=== PATIENT | female | born 1980 | race American Indian/Alaskan Native ===

== ENCOUNTER 2018-11-28 22:18 | Observation (INO) | payer MEDICAID ==
--- NOTE | 2018-11-28 23:43 | XRay Report ---
CHEST 1 VIEW INDICATION / CLINICAL INFORMATION: Chest Pain. COMPARISON: None available. FINDINGS: SUPPORT DEVICES: None. HEART / MEDIASTINUM: No significant abnormality. LUNGS / PLEURA: No significant pulmonary or pleural abnormality. No pneumothorax. ADDITIONAL FINDINGS: A LAP-BAND is noted. IMPRESSION: 1. No acute findings. Signer Name: Stalin Kumar MD Signed: 11/28/2018 11:38 PM Workstation Name: [id number]
[2018-11-28 23:51] LABS: Basophils # (Auto) 0.1 K/mm3 (0.0-0.1); Basophils % (Auto) 0.7 % (0.0-1.8); Eosinophils # (Auto) 0.1 K/mm3 (0.0-0.4); Eosinophils % (Auto) 1.5 % (0.0-4.3); Hematocrit 38.2 % (30.3-42.9); Hemoglobin 13.2 gm/dl (10.1-14.3); Lymphocytes # (Auto) 3.5 K/mm3 (1.2-5.4); Lymphocytes % (Auto) 47.3 % (13.4-35.0); Mean Corpuscular HGB Conc 35 % (30-34); Mean Corpuscular Volume 90 fl (79-97); Monocytes # (Auto) 0.8 K/mm3 (0.0-0.8); Monocytes % (Auto) 10.3 % (0.0-7.3); Platelet Count 338 K/mm3 (140-440); Red Blood Count 4.23 M/mm3 (3.65-5.03); Red Cell Distribution Width 13.5 % (13.2-15.2)
[2018-11-29 00:06] LABS: BUN/Creatinine Ratio 19; Blood Urea Nitrogen 17 mg/dL (7-17); Calcium 9.9 mg/dL (8.4-10.2); Hemolysis Index 11
[2018-11-29] MEDS ORDERED: ZOFRAN IV ONE (02:25)
[2018-11-29] MEDS ORDERED: ASPIRIN PO ONE (02:25)
[2018-11-29] MEDS ORDERED: SUBLIMAZE IV ONE (02:25)
[2018-11-29] MEDS ORDERED: NITRO-BID 2% TP ONE (02:25)
--- NOTE | 2018-11-29 02:30 | Emergency Department Report ---
HPI - General Chief Complaint: Chest Pain Time Seen by Provider: 11/29/18 02:15 - HPI HPI: Room 3 The patient is 38-year-old female presenting with chief complaint of chest pain. The patient states for the past 3 days she has had a waxing and waning moreno bsternal chest pain described as a pressure. Patient states this seems as though her pain worsens after meals. The patient states she has taken Tums but it does not resolve the pain. Patient admits to shortness of breath associated with her chest pain but denies diaphoresis or nausea/vomiting. Patient currently gives her chest pain score of 8/10. The patient states she's never had a stress test or cardiac catheterization Location: [See above] Duration: [See above] Quality: [See above] Severity: [See above] Modifying factors: [see above] Context: [see above] Mode of transportation: [not driving] ED Past Medical Hx - Past Medical History Previous Medical History?: No - Surgical History Past Surgical History?: Yes Additional Surgical History: Cyst removal right hand 10/26/18. Nerve damage Repair right hand 10/26/18. Carpal Tunnel Release 09/09/17. Nerve Damage Repair right hand 09/27/17 - Family History Family history: no significant - Social History Smoking Status: Never Smoker Substance Use Type: None (denies illicit drug use), Alcohol (occasional) ED Review of Systems ROS: Stated complaint: CHEST/BACK PAIN Other details as noted in HPI Constitutional: denies: diaphoresis Eyes: denies: eye pain ENT: denies: throat pain Respiratory: shortness of breath Cardiovascular: chest pain Endocrine: no symptoms reported Gastrointestinal: denies: nausea, vomiting Genitourinary: denies: dysuria Musculoskeletal: denies: back pain Neurological: denies: headache Physical Exam - Physical Exam Vital Signs: Vital Signs 11/28/18 11/29/18 22:22 01:55 Temperature 98.8 F 98.7 F Pulse Rate 73 70 Respiratory 18 17 Rate Blood Pressure 115/78 Blood Pressure 119/71 [Left] O2 Sat by Pulse 98 97 Oximetry Physical Exam: GENERAL: The patient is well-developed well-nourished female lying on stretcher not appearing to be in acute distress. [] HEENT: Normocephalic. Atraumatic. Extraocular motions are intact. Patient has moist mucous membranes. NECK: Supple. Trachea midline CHEST/LUNGS: Clear to auscultation. There is no respiratory distress noted. HEART/CARDIOVASCULAR: Regular. There is no tachycardia. There is no gallop rub or murmur. ABDOMEN: Abdomen is soft, nontender. Patient has normal bowel sounds. There is no abdominal distention. SKIN: There is no rash. There is no edema. There is no diaphoresis. NEURO: The patient is awake, alert, and oriented. The patient is cooperative. The patient has normal speech MUSCULOSKELETAL: There is no evidence of acute injury. ED Course Vital Signs 11/28/18 11/29/18 22:22 01:55 Temperature 98.8 F 98.7 F Pulse Rate 73 70 Respiratory 18 17 Rate Blood Pressure 115/78 Blood Pressure 119/71 [Left] O2 Sat by Pulse 98 97 Oximetry ED Medical Decision Making - Lab Data Result diagrams: 11/28/18 23:03 11/28/18 23:03 Laboratory Tests 11/28/18 11/28/18 23:03 23:03 WBC 7.3 RBC 4.23 Hgb 13.2 Hct 38.2 MCV 90 MCH 31 MCHC 35 H RDW 13.5 Plt Count 338 Lymph % (Auto) 47.3 H Dickens % (Auto) 10.3 H Eos % (Auto) 1.5 Baso % (Auto) 0.7 Lymph # 3.5 Dickens # 0.8 Eos # 0.1 Baso # 0.1 Seg Neutrophils % 40.2 Seg Neutrophils # 2.9 Sodium 141 Potassium 3.8 Chloride 102.2 Carbon Dioxide 29 Anion Gap 14 BUN 17 Creatinine 0.9 Estimated GFR > 60 BUN/Creatinine Ratio 19 Glucose 101 H Calcium 9.9 Troponin T < 0.010 - EKG Data -: EKG Interpreted by Me EKG shows normal: sinus rhythm Rate: normal - EKG Data When compared to previous EKG there are: previous EKG unavailable Interpretation: normal EKG - Radiology Data Radiology results: report reviewed (chest x-ray), image reviewed (chest x-ray) interpreted by me: Chest x-ray-no focal infiltrates, no pneumothorax [facility], [place] [address] [place] [address] XRay Report Signed Patient: REECE BOND MR#: [id number] : 1980 Acct:[id number] Age/Sex: 38 / F ADM Date: 11/28/18 Loc: ED Attending Dr: Ordering Physician: JOSE NIXON MD Date of Service: 11/28/18 Procedure(s): XR chest 1V ap Accession Number(s): [id number] cc: ED MD HUSSAIN Fluoro Time In Minutes: CHEST 1 VIEW INDICATION / CLINICAL INFORMATION: Chest Pain. COMPARISON: None available. FINDINGS: SUPPORT DEVICES: None. HEART / MEDIASTINUM: No significant abnormality. LUNGS / PLEURA: No significant pulmonary or pleural abnormality. No pneumothorax. ADDITIONAL FINDINGS: A LAP- BAND is noted. IMPRESSION: 1. No acute findings. Signer Name: Stalin Kumar MD Signed: 11/28/2018 11:38 PM Workstation Name: [id number] Transcribed By: BRUNILDA Dictated By: Stalin Kumar MD Electronically Authenticated By: Stalin Kumar MD Signed Date/Time: 11/28/182337 DD/ 37 TD/TT: - Differential Diagnosis ACS, pericarditis, GERD, Critical care attestation.: If time is entered above; I have spent that time in minutes in the direct care of this critically ill patient, excluding procedure time. ED Disposition Clinical Impression: Chest pain Disposition: DC-09 OP ADMIT IP TO THIS HOSP Is pt being admited?: Yes Does the pt Need Aspirin: Yes Condition: Fair Instructions: Chest Pain (ED) Time of Disposition: 02:30 (hospitalist paged (Dr. Tatiana Velazco))
[2018-11-29] MEDS ORDERED: PERCOCET 5/325 PO PRN (03:53)
[2018-11-29] MEDS ORDERED: SODIUM CHLORIDE FLUSH SYRINGE 10 ML IV PRN (03:53)
[2018-11-29] MEDS ORDERED: TYLENOL PO PRN (03:53)
[2018-11-29] MEDS ORDERED: ZOFRAN IV PRN (03:53)
--- NOTE | 2018-11-29 03:56 | History and Physical Report ---
History of Present Illness Date of examination: 11/29/18 History of present illness: 38-year-old woman with no medical history comes emergency room with complaints of chest pain, described as pressure, constant, intensity, 5/10, no radiation, some relief with tums, cannot identify exacerbating factors. Denies nausea and vomiting, palpitation, +shortness of breath Review of systems Constitutional: no weight loss, chills, fever Ears, eyes, nose, mouth and throat: no nasal congestion, no nasal discharge, no sinus pressure, no vision change, no red eye. Neck: No neck pain or rigidity. Cardiovascular: no palpitations Respiratory: no cough Gastrointestinal: no hematochezia, abdominal pain Genitourinary : no frequency , no hematuria Musculoskeletal: no joint swelling or muscle ache Integumentary: no rash, no pruritis Neurological: no parathesias, no focal weakness Endocrine: no cold or heat intolerance, no polyuria or polydipsia Hematologic/Lymphatic: no easy bruising, no easy bleeding, no gland swelling Allergic/Immunologic: no urticaria, no angioedema. PAST MEDICAL HISTORY:None PAST SURGICAL HISTORY: Cyst removal right hand, Nerve damage Repair right hand, Carpal Tunnel Release SOCIAL HISTORY: Denies alcohol, drugs, tobacco FAMILY HISTORY: Hypertension Medications and Allergies Allergies Allergy/AdvReac Type Severity Reaction Status Date / Time No Known Allergies Allergy Unverified 11/28/18 22:57 Home Medications Medication Instructions Recorded Confirmed Last Taken Type HYDROcodone/APAP 5-325 [[place] 1 each PO QDAY PRN 11/29/18 11/29/18 Unknown History 5-325 mg TAB] Pantoprazole [Protonix TAB] 40 mg PO QDAY #30 tablet 11/30/18 Unknown Rx Active Meds: Active Medications Acetaminophen (Tylenol) 650 mg PO Q4H PRN PRN Reason: Pain MILD(1-3)/Fever >100.5/GONZALES Enoxaparin Sodium (Lovenox) 30 mg SUB-Q QDAY MARIANO Ondansetron HCl (Zofran) 4 mg IV Q8H PRN PRN Reason: Nausea And Vomiting Oxycodone/Acetaminophen (Percocet 5/325) 1 tab PO Q6H PRN PRN Reason: Pain, Moderate (4-6) Sodium Chloride (Sodium Chloride Flush Syringe 10 Ml) 10 ml IV BID MARIANO Sodium Chloride (Sodium Chloride Flush Syringe 10 Ml) 10 ml IV PRN PRN PRN Reason: LINE FLUSH Exam - Physical Exam Narrative exam: General Apperance: The patient lying in bed, breathing comfortable HEENT: Normocephalic, atraumatic. Pupils equally round and reactive to light, EOMI, no sclericterus or JVD or thyromegaly or nodule. , no carotid bruit, mucous membranes moist, no exudate or erythema Heart: S1-S2, regular is rhythm Lungs: Clear to auscultation bilaterally, breathing comfortable Abdomen: Positive bowel sounds, soft, nontender, nondistended, no organomegaly Extremities: No edema cyanosis clubbing Skin: no rash, nodule, warm and dry Neuro: cranial nerves 2-12 intact, speech is fluent, motor/sensory intact - Constitutional Vitals: Temp Pulse Resp BP Pulse Ox 98.7 F 70 16 138/80 97 11/29/18 01:55 11/29/18 02:51 11/29/18 03:50 11/29/18 02:51 11/29/18 01:55 Results - Labs CBC & Chem 7: 11/28/18 23:03 11/28/18 23:03 Labs: Abnormal lab results 11/28/18 11/28/18 Range/Units 23:03 23:03 MCHC 35 H (30-34) % Lymph % (Auto) 47.3 H (13.4-35.0) % Castro % (Auto) 10.3 H (0.0-7.3) % Glucose 101 H (65-100) mg/dL - Imaging and Cardiology EKG: image reviewed Chest x-ray: image reviewed Assessment and Plan Assessment Chest Pain, atypical Plan Admit to medicine Check cardiac enzymes, stress test DVT prophalaxis
[2018-11-29] MEDS: LOVENOX SUB-Q SCH (10:08)
--- NOTE | 2018-11-29 13:10 | Event Note ---
Date: 11/29/18 Patient seen and examined, no new chest pain. Resting comfortable. Start diet and await stress test in AM.
[2018-11-29] MEDS: SODIUM CHLORIDE FLUSH SYRINGE 10 ML IV SCH ×2 (19:05→21:07)
[2018-11-30] MEDS ORDERED: LEXISCAN IV ONE ×2 (11:34→13:11)
--- NOTE | 2018-11-30 13:10 | Treadmill Report ---
LEXISCAN STRESS TEST REPORT REASON FOR STUDY: Chest pain. STRESS TEST PROTOCOL: The patient received 0.4 of Lexiscan intravenously over 10 seconds. Technetium-99m tetrofosmin was subsequently injected. Baseline ECG: sinus bradycardia. Lexiscan ECG: no ischemic changes. No chest pain. No arrhythmias. IMPRESSION: Electrocardiographically negative stress test. Nuclear imaging report to follow. JOB# [id number] YASMINE/LISBET HARDEN
--- NOTE | 2018-11-30 14:08 | Discharge Summary ---
Providers - Providers Date of Admission: 11/29/18 03:36 Attending physician: KARISSA HASTINGS MD Primary care physician: OBED Hospitalization Condition: Stable Disposition: DC-01 TO HOME OR SELFCARE Exam - Constitutional Vitals: Temp Pulse Resp BP Pulse Ox 98.8 F 59 L 18 167/103 99 11/30/18 12:32 11/30/18 05:18 11/30/18 12:32 11/30/18 12:32 11/30/18 10:00 Plan Activity: advance as tolerated, fall precautions Diet: low fat Follow up with: LILIAN CLAY MD [Primary Care Provider] - 7 Days MIN,ORTIZ CHAKRABORTY MD [Staff Physician] - 7 Days Prescriptions: Pantoprazole [Protonix TAB] 40 mg PO QDAY #30 tablet
[2018-11-30] MEDS: SODIUM CHLORIDE FLUSH SYRINGE 10 ML IV SCH ×2 (15:17→21:10)
[2018-11-30] MEDS: LOVENOX SUB-Q SCH (15:17)
--- NOTE | 2018-11-30 16:21 | Consultation ---
History of Present Illness Consult date: 11/30/18 Requesting physician: KARISSA HASTINGS Consult reason: chest pain, other (abnormal stress test) History of present illness: The patient presented with a one-week history of intermittent substernal chest pressure with no radiation. There is no associated nausea, vomiting, diaphoresis or dyspnea. Earlier this morning, she underwent a Lexiscan stress test with nuclear imaging. The test revealed a medium size, partially r eversible apical defect, as well as a medium-size reversible anterior defect. Past History Past Medical History: No medical history Past Surgical History: Other (hand surgery) Social history: denies: smoking, alcohol abuse Family history: denies: CAD Medications and Allergies Allergies Allergy/AdvReac Type Severity Reaction Status Date / Time No Known Allergies Allergy Unverified 11/28/18 22:57 Home Medications Medication Instructions Recorded Confirmed Last Taken Type HYDROcodone/APAP 5-325 [[place] 1 each PO QDAY PRN 11/29/18 11/29/18 Unknown History 5-325 mg TAB] Pantoprazole [Protonix TAB] 40 mg PO QDAY #30 tablet 11/30/18 Unknown Rx Active Meds: Active Medications Acetaminophen (Tylenol) 650 mg PO Q4H PRN PRN Reason: Pain MILD(1-3)/Fever >100.5/GONZALES Enoxaparin Sodium (Lovenox) 40 mg SUB-Q QDAY [facility] Last Admin: 11/30/18 15:17 Dose: 40 mg Documented by: Ondansetron HCl (Zofran) 4 mg IV Q8H PRN PRN Reason: Nausea And Vomiting Oxycodone/Acetaminophen (Percocet 5/325) 1 tab PO Q6H PRN PRN Reason: Pain, Moderate (4-6) Last Admin: 11/30/18 15:45 Dose: 1 tab Documented by: Sodium Chloride (Sodium Chloride Flush Syringe 10 Ml) 10 ml IV BID [facility] Last Admin: 11/30/18 15:17 Dose: 10 ml Documented by: Sodium Chloride (Sodium Chloride Flush Syringe 10 Ml) 10 ml IV PRN PRN PRN Reason: LINE FLUSH Review of Systems Constitutional: no fever, no chills Ears, nose, mouth and throat: no ear pain, no ear discharge, no sore throat Cardiovascular: chest pain, no orthopnea, no palpitations, no lightheadedness, no shortness of breath Respiratory: no cough, no hemoptysis, no shortness of breath Gastrointestinal: no abdominal pain, no nausea, no vomiting, no diarrhea, no constipation Genitourinary Female: no dysuria, no urinary frequency Rectal: no pain, no bleeding Musculoskeletal: no neck stiffness, no neck pain, no myalgias Integumentary: no rash, no pruritis Neurological: no weakness, no parathesias, no headaches Endocrine: no cold intolerance, no heat intolerance Hematologic/Lymphatic: no easy bruising, no easy bleeding Allergic/Immunologic: no urticaria, no wheezing Physical Examination Vital Signs Last Vital Signs Temp 98.8 F 11/30/18 12:32 Pulse 59 L 11/30/18 05:18 Resp 18 11/30/18 12:32 BP 167/103 11/30/18 12:32 Pulse Ox 99 11/30/18 10:00 General appearance: no acute distress HEENT: Positive: Normocephaly, Mucus Membranes Moist Neck: Positive: neck supple, trachea midline Cardiac: Positive: Reg Rate and Rhythm, S1/S2 Lungs: Positive: clear to auscultation Neuro: Positive: Grossly Intact Abdomen: Positive: Soft, Active Bowel Sounds. Negative: Tender Skin: Positive: Clear. Negative: Rash Musculoskeletal: Normal Range of Motion Extremities: Present: normal. Absent: edema Results 11/28/18 23:03 11/28/18 23:03 - Imaging and Cardiology EKG: image reviewed EKG interpretations - Telemetry EKG Rhythm: Sinus Rhythm - EKG Sinus rhythms and dysrhythmias: sinus rhythm Assessment and Plan Scheduled for coronary angiography in a.m. The test has been discussed with the patient in detail and she has agreed to proceed. - Patient Problems (1) Chest pain Current Visit: Yes Status: Acute (2) Abnormal nuclear stress test Current Visit: Yes Status: Acute (3) Obesity Current Visit: Yes Status: Chronic Qualifiers: Obesity type: due to excess calories
[2018-11-30] MEDS ORDERED: NACL 0.9% 500 ML 500 ML IV SCH (17:00)
[2018-11-30] MEDS ORDERED: COLACE PO SCH (17:36)
--- NOTE | 2018-11-30 18:33 | Progress Note ---
Assessment and Plan Assessment and plan: 38-year-old white woman with no medical history comes emergency room with complaints of chest pain, described as pressure, constant, intensity, 5/10, no radiation, some relief with tums, cannot identify exacerbating factors. Denies nausea and vomiting, palpitation, +shortness of breath Chest Pain, atypical Morbid Obesity Plan Continue supportive care Stress Test positive for cardiac cath in am Cardiology consulted Counselling on weightloss recommended. DVT prophalaxis History Interval history: Patient seen and examined, no complaints. Hospitalist Physical - Physical exam Narrative exam: VITAL SIGNS: Reviewed. GENERAL: The patient appeared normally developed, obese, Vital signs as documented. HEAD: No signs of head trauma. EYES: Pupils are equal. Extraocular motions intact. EARS: Hearing grossly intact. MOUTH: Oropharynx is normal. NECK: No adenopathy, no JVD. CHEST: Chest with clear breath sounds bilaterally. No wheezes, rales, or rhonchi. CARDIAC: Regular rate and rhythm. S1 and S2, without murmurs, gallops, or rubs. VASCULAR: No Edema. Peripheral pulses normal and equal in all extremities. ABDOMEN: Soft, non tender and non distended. No rebound or guarding, and no masses palpated. Bowel Sounds normal. MUSCULOSKELETAL: Good range of motion of all major joints. Extremities without clubbing, cyanosis or edema. NEUROLOGIC EXAM: Alert and oriented x 3 No focal sensory or strength deficits. Speech normal. Follows commands. PSYCHIATRIC: Mood normal. SKIN: detial exam as documented in skin assessment - Constitutional Vitals: Temp Pulse Resp BP Pulse Ox 98.8 F 59 L 18 167/103 99 11/30/18 12:32 11/30/18 05:18 11/30/18 12:32 11/30/18 12:32 11/30/18 10:00 General appearance: Present: no acute distress Results - Labs CBC & Chem 7: 11/28/18 23:03 11/28/18 23:03 Labs: Laboratory Last Values WBC 7.3 K/mm3 (4.5-11.0) 11/28/18 23:03 RBC 4.23 M/mm3 (3.65-5.03) 11/28/18 23:03 Hgb 13.2 gm/dl (10.1-14.3) 11/28/18 23:03 Hct 38.2 % (30.3-42.9) 11/28/18 23:03 MCV 90 fl (79-97) 11/28/18 23:03 MCH 31 pg (28-32) 11/28/18 23:03 MCHC 35 % (30-34) H 11/28/18 23:03 RDW 13.5 % (13.2-15.2) 11/28/18 23:03 Plt Count 338 K/mm3 (140-440) 11/28/18 23:03 Lymph % (Auto) 47.3 % (13.4-35.0) H 11/28/18 23:03 [place] % (Auto) 10.3 % (0.0-7.3) H 11/28/18 23:03 Eos % (Auto) 1.5 % (0.0-4.3) 11/28/18 23:03 Baso % (Auto) 0.7 % (0.0-1.8) 11/28/18 23:03 Lymph # 3.5 K/mm3 (1.2-5.4) 11/28/18 23:03 [place] # 0.8 K/mm3 (0.0-0.8) 11/28/18 23:03 Eos # 0.1 K/mm3 (0.0-0.4) 11/28/18 23:03 Baso # 0.1 K/mm3 (0.0-0.1) 11/28/18 23:03 Seg Neutrophils % 40.2 % (40.0-70.0) 11/28/18 23:03 Seg Neutrophils # 2.9 K/mm3 (1.8-7.7) 11/28/18 23:03 Sodium 141 mmol/L (137-145) 11/28/18 23:03 Potassium 3.8 mmol/L (3.6-5.0) 11/28/18 23:03 Chloride 102.2 mmol/L (98-107) 11/28/18 23:03 Carbon Dioxide 29 mmol/L (22-30) 11/28/18 23:03 14 mmol/L 11/28/18 23:03 BUN 17 mg/dL (7-17) 11/28/18 23:03 0.9 mg/dL (0.7-1.2) 11/28/18 23:03 Estimated GFR > 60 ml/min 11/28/18 23:03 19 % 11/28/18 23:03 Glucose 101 mg/dL (65-100) H 11/28/18 23:03 Calcium 9.9 mg/dL (8.4-10.2) 11/28/18 23:03 < 0.010 ng/mL (0.00-0.029) 11/29/18 05:22 Active Medications - Current Medications Current Medications: Generic Name Dose Route Start Last Admin Trade Name Freq PRN Reason Stop Dose Admin Acetaminophen 650 mg 11/29/18 03:53 Tylenol PO Q4H PRN Pain MILD(1-3)/Fever >100.5/GONZALES Docusate Sodium 100 mg 11/30/18 17:36 Colace PO BID MARIANO Enoxaparin Sodium 40 mg 11/29/18 10:00 11/30/18 15:17 Lovenox SUB-Q 40 mg QDAY MARIANO Administration Sodium Chloride 500 mls @ 50 mls/hr 11/30/18 17:00 Nacl 0.9% 500 Ml IV 12/01/18 02:59 DIRECT MARIANO Ondansetron HCl 4 mg 11/29/18 03:53 Zofran IV Q8H PRN Nausea And Vomiting Oxycodone/Acetaminophen 1 tab 11/29/18 03:53 11/30/18 15:45 Percocet 5/325 PO 1 tab Q6H PRN Administration Pain, Moderate (4-6) Sodium Chloride 10 ml 11/29/18 10:00 11/30/18 15:17 Sodium Chloride Flush Syringe 10 Ml IV 10 ml BID MARIANO Administration Sodium Chloride 10 ml 11/29/18 03:53 Sodium Chloride Flush Syringe 10 Ml IV PRN PRN LINE FLUSH
[2018-11-30] MEDS: COLACE PO SCH (22:03)
--- NOTE | 2018-12-01 00:54 | Treadmill Report ---
Nuclear Imaging Report REASON FOR STUDY: Chest pain. IMAGING PROTOCOL: The patient received 10 mCi of technetium-99m Tetrofosmin for rest imaging and 28 mCi of technetium-99m Tetrofosmin for stress imaging. Imaging for all procedures was completed 30-90 minutes following the initial injection of Technetium 99m Tetrofosmin. SPECT imaging in the 180 degree arc was performed in the right anterior oblique projection. Computerized reconstruction of the images was performed for analysis. NUCLEAR IMAGING RESULTS: Technically limited study due to soft tissue attenuation artifact. Normal left ventricular cavity size with no change from stress to rest. Distribution of radionuclide within the left ventricle revealed a medium-sized area of photo-induction involving the apex. The degree of photo-induction is moderate. Rest imaging showed partial improvement (90%) in this defect. There is also a medium size area of photo-induction involving the anterior wall. The degree of photo-induction is mild to moderate. Rest imaging showed complete improvement in this defect. Gated SPECT imaging revealed normal global LV systolic function with no significant wall motion abnormalities. The calculated left ventricular ejection fraction is 68%. IMPRESSION: Technically limited study. Medium size, partially reversible apical defect. Medium size reversible anterior defect. Normal global left ventricular systolic function with no significant wall motion abnormalities. EF 68%. These findings suggest significant reversible ischemia in the left anterior descending coronary artery territory. A small area of prior infarction may also be present in the same territory. JOB# [id number] YASMINE/LISBET HARDEN
[2018-12-01 06:45] LABS: INR 1.08 (0.87-1.13)
[2018-12-01] MEDS ORDERED: ECOTRIN PO ONE (08:36)
[2018-12-01] MEDS ORDERED: ECOTRIN PO SCH (09:00)
[2018-12-01] MEDS: NACL 0.9% 500 ML 500 ML IV SCH ×2 (09:32→10:09)
[2018-12-01] MEDS ORDERED: HEPARIN 10,000 UNITS/10 ML ONE (09:34)
[2018-12-01] MEDS ORDERED: CALAN ONE (09:34)
[2018-12-01] MEDS ORDERED: XYLOCAINE 2% INFILTRATI ONE (09:34)
[2018-12-01] MEDS ORDERED: HEPARIN/NS 5000 UNIT/500ML(CATH LAB) 1,000 ML IR ONE (09:34)
[2018-12-01] MEDS ORDERED: NITROGLYCERIN SYRINGE 3 ML ONE (09:35)
[2018-12-01] MEDS ORDERED: SUBLIMAZE ONE (09:53)
[2018-12-01] MEDS ORDERED: VERSED ONE (09:53)
--- NOTE | 2018-12-01 10:24 | Progress Note ---
Assessment and Plan chest pain morbid obesity rec: normal coronaries and normal lv function, treat for non cardiac chest pain and pt should followup with dr barnes in [facility] [phone] - SLIM, Subjective Date of service: 12/01/18 Principal diagnosis: chest pain Interval history: chest pain free today Objective Vital Signs Temp Pulse Resp BP Pulse Ox 12/01/18 03:56 98.5 F 70 18 169/92 99 11/30/18 23:55 98.2 F 72 18 164/86 99 11/30/18 20:44 59 L 11/30/18 20:35 98 11/30/18 19:23 98.6 F 73 20 152/85 97 11/30/18 16:38 98.1 F 18 155/94 11/30/18 12:32 98.8 F 18 167/103 11/30/18 11:33 138/77 11/30/18 11:31 137/71 11/30/18 11:29 130/69 11/30/18 11:28 132/73 11/30/18 11:26 120/79 11/30/18 11:25 129/67 11/30/18 11:18 130/59 - Physical Examination General: No Apparent Distress HEENT: Positive: Normocephaly, Mucus Membranes Moist Neck: Positive: neck supple, trachea midline Cardiac: Positive: Reg Rate and Rhythm Lungs: Positive: clear to auscultation Neuro: Positive: Grossly Intact Abdomen: Positive: Soft, Active Bowel Sounds. Negative: Tender Skin: Positive: Clear. Negative: Rash Musculoskeletal: Normal Range of Motion Extremities: Present: normal. Absent: edema - Labs and Meds Coagulation 12/01/18 Range/Units 06:21 PT 13.7 (12.2-14.9) Sec. INR 1.08 (0.87-1.13) - Imaging and Cardiology EKG: image reviewed Cardiac cath: report reviewed (normal coronaries and normal lv function ) - Telemetry EKG Rhythm: Sinus Rhythm - EKG Sinus rhythms and dysrhythmias: sinus rhythm
--- NOTE | 2018-12-01 10:37 | Cardiac Catherization Report ---
LEFT HEART CATHETERIZATION CLINICAL INFORMATION: This is a 38-year-old patient here for left heart catheterization being done on 12/01/2018 for recurrent chest pain for suspected coronary artery disease as the patient has an abnormal stress test. Procedure was done under moderate sedation, 1 mg Versed, 50 mcg of fentanyl, starts sedation time 9:57 a.m., finished at 10:12 a.m., 50 minutes of moderate supervised sedation. Procedure was performed by the right radial artery, sterile technique, local anesthesia, 6-Filipino radial sheath inserted. PROCEDURE FINDINGS: Left system engaged with JL3.5 catheter. Left main is a large caliber vessel, patent, and bifurcates into large LAD, is patent. Ramus is a medium caliber vessel, it is patent with multiple branches are patent. Small circumflex is patent. RCA engaged with JR4 catheter, medium caliber vessel with moderate to severe tortuosity, patent, small PDA, PLV. LV gram done in MITA and BURDICK view shows normal LV function, EF 55-60%, LVEDP 18 mmHg. LV was 142 mmHg. Aortic is 142/75. No gradient across the aortic valve on pullback. 5-Filipino catheters were taken over guidewire, 6-Filipino radial sheath was discontinued. Radial band applied. No hematoma, no bleeding. SUMMARY: Normal coronaries, normal LV function, noncardiac chest pain. JOB# [id number] JOHN/LISBET
[2018-12-01] MEDS: COLACE PO SCH (10:54)
[2018-12-01] MEDS: LOVENOX SUB-Q SCH (10:54)
[2018-12-01] MEDS: SODIUM CHLORIDE FLUSH SYRINGE 10 ML IV SCH (10:57)
[2018-12-01 12:10] VITALS: BP 133/70
--- NOTE | 2018-12-01 12:42 | Discharge Summary ---
Providers - Providers Date of Admission: 11/29/18 03:36 Date of discharge: 12/01/18 Attending physician: ADRIANNA SUH 11/30/18 14:56 Consult to Physician [CONS] Routine Comment: Consulting Provider: ROCCO POTTER Physician Instructions: Reason For Exam: positive stress test 12/01/18 10:24 Consult to Cardiac Rehabilitation [CONS] Routine Reason For Exam: Cardiac Rehab Evaluation Primary care physician: OBED Hospitalization Condition: Fair Hospital course: Patient is 38-year-old woman with no medical history presented to Emergency Department with complaints of chest pain, described as pressure, constant. She was seen and evaluated in ED and admitted to rule out acute coronary syndrome. Stress test done the following day was abnormal. Therefore cardiac cath was then done on 12/01/18. This revealed normal coronaries. Chest pain determined to be non-cardiac. Chest pain due to GERD. Patient was then discharged home. Total time spent on discharge, 32 mins Disposition: DC-01 TO HOME OR SELFCARE - Discharge Diagnoses (1) GERD (gastroesophageal reflux disease) Status: Acute (2) Abnormal nuclear stress test Status: Acute (3) Chest pain Status: Acute (4) Obesity Status: Chronic Qualifiers: Obesity type: due to excess calories Core Measure Documentation - Palliative Care Palliative Care/ Comfort Measures: Not Applicable - Core Measures Any of the following diagnoses?: none Exam - Constitutional Vitals: Temp Pulse Resp BP Pulse Ox 98.1 F 93 H 18 133/70 88 12/01/18 11:19 12/01/18 11:19 12/01/18 11:19 12/01/18 11:19 12/01/18 11:19 Plan Activity: advance as tolerated Diet: low fat, low cholesterol, low salt Additional Instructions: 1.Follow up with PCP in 1 week. 2.Follow up with ALTON Hernandez in 1 week Follow up with: ORTIZ BUSTOS MD [Staff Physician] - 7 Days LILIAN CLAY MD [Primary Care Provider] - 7 Days Prescriptions: Pantoprazole [Protonix TAB] 40 mg PO QDAY #30 tablet
== END 2018-12-01 14:45 | disposition home or self-care (01) ==
LOC: ED 22:18 → 4A 11-29 03:36 → INTOOBSV 11-29 03:36
PROVIDERS: ADMIT Internal Medicine; ATTEND Internal Medicine
DX: R07.89 Other chest pain (principal); E66.01 Morbid (severe) obesity due to excess calories; R94.39 Abnormal result of other cardiovascular function study; Z79.899 Other long term (current) drug therapy
CPT/HCPCS: 36415; 71045; 78452; 80048; 84484; 85025; 85610; 93005; 93010; 93017; 93458; 96372; 96374; 99284; A9502; C1894; G0378; J1644; J1650; J2250; J2405; J2785; J3010; J7040; 96375; Q9967

== ENCOUNTER 2019-03-25 08:57 | Outpatient (CLI) | payer MEDICAID ==
--- NOTE | 2019-03-25 10:20 | Fluoroscopy Report ---
BARIUM SWALLOW Indication: E66.01 MORBID SEVERE OBESITY DUE TO EXCESS CALORIES/Z98.84BARIATR. Technique: Single contrast barium technique utilized to evaluate the esophagus. FINDINGS: A modified examination was performed with the surgeon Dr. Coreas present to evaluate a lap band device and adjust the fluid content as needed. Coil Cutter film of the abdomen demonstrates a lap band in the left upper quadrant in good position. The visualized distal esophagus, GE junction and stomac h are within normal limits. There is no evidence for slippage, erosion or hernia. There was easy pass age of the contrast agent through the lap band. Dr. Coreas made multiple attempts under fluoroscopy to access the lap band port which was unsuccessfu l. The port appears to be flipped upside down. IMPRESSION: Normal appearance of the lap band device. Unsuccessful attempts to access the port. Fluoroscopic time: 10.0 minutes Number of fluoroscopic images: 14 Signer Name: Pop Liang Jr, MD Signed: 03/25/2019 10:15 AM Workstation Name: [id number]
== END 2019-03-25 08:58 | disposition home or self-care (01) ==
LOC: FLUORO 08:57
PROVIDERS: ATTEND Surgery
DX: E66.01 Morbid (severe) obesity due to excess calories (principal); Z98.84 Bariatric surgery status
CPT/HCPCS: 74220; Q9967